=== PATIENT | female | born 1950 | race Caucasian/White ===

== ENCOUNTER → 2020-03-28 12:39 | Outpatient (CLI) | payer MEDICARE, SELFPAY ==
--- NOTE | ~2020-03-28 | DEXA_ITS ---
Bone Density Report Name: Sabina Sykes Age: 69 Sex: Female Ethnicity: White Date of : 1950 Indication: postmenopausal; screening for osteoporosis; parental hip fracture; Referring Provider: Fan Reese Study: Bone densitometry was performed. Exam Date: March 28, 2020 Accession number: [id number] Bone Density: Region BMD T-score Z-score Classification AP Spine (L1-L4) 1.003 -0.4 1.8 Normal World Health Organization criteria for BMD impression classify patients as: Normal (T-score at or above -1.0), Osteopenia (T-score between -1.0 and -2.5), or Osteoporosis (T-score at or below -2.5). Clinical Information Provided by Patient: Parent has had a hip fracture Has used the following medications: Vitamin D, Calcium, LEVOTHYROXIN Patient maximum height was 62.0 Menopause Age: 52 No regular weight bearing exercise Drinks caffeinated beverages Onset of menses at age 11 Number of children 2 Impression: The patient has normal bone mass. The patient has risk factors, including: parental hip fracture. Discussion: BONE DENSITY IS ABOVE THE MINIMUM DESIRABLE LEVEL AT ALL SKELETAL SITES TESTED. This patient?s bone mineral density is above the minimum desirable level (T-score -1.0 or better) at all sites measured. The patient should follow a healthful lifestyle (good nutrition with adequate calcium and vitamin D, and appropriate weight-bearing exercise). Follow-Up: Consider repeating this study in 5 years or sooner if there is some new clinical indication. Reported by: ERVIN on 03/28/2020 1:22:00 PM. Reviewed, dictated and finalized at location [facility]
== END ==
PROVIDERS: PCP Internal Medicine; Visit Provider Obstetrics & Gynecology
DX: M81.0 Age-related osteoporosis without current pathological fracture (principal)
CPT/HCPCS: 77080

== ENCOUNTER 2020-05-24 01:50 | Outpatient (CLI) | payer MEDICARE, SELFPAY ==
[2020-05-24 18:59] LABS: SARS-CoV-2 RNA PCR Negative
== END 2020-05-24 01:51 | disposition home or self-care (01) ==
LOC: ANHCOVIDDT 01:50
PROVIDERS: PCP Internal Medicine; Visit Provider Internal Medicine Gastroenterology
DX: Z01.812 Encounter for preprocedural laboratory examination (principal); Z20.828 Contact with and (suspected) exposure to other viral communicable diseases
CPT/HCPCS: 87635; C9803; U0003

== ENCOUNTER 2020-05-28 01:12 | Day surgery (SDC) | payer MEDICARE, SELFPAY ==
[2020-05-22 09:07] VITALS: BMI 29.7
[2020-05-28] MEDS: LACTATED RINGERS 1,000 ML 150 ML IV CONT (09:50)
[2020-05-28 09:52] VITALS: BP 130/82; PULSE 76; RESP 16; TEMP 36.4; O2SAT 96; BMI 30.2
--- NOTE | 2020-05-28 10:29 | WPDANESEPPF ---
Anes - Initial Pre Proc Eval Procedure: Operation Date: 05/28/20 11:00 Proposed Procedures p Screening Colonoscopy - Song Stanton MD Date/Time: 05/28/20 10:29 Surgeon: Song Stanton MD Pre Op Diagnosis: Neoplasm Screening Patient Data Age: 70 Gender: F Height: 5 ft 2 in Weight: 75 kg Last Vital Signs Temp 97.5 F L 05/28/20 09:52 Pulse 76 05/28/20 09:52 Resp 16 05/28/20 09:52 BP 130/82 05/28/20 09:52 Pulse Ox 96 05/28/20 09:52 Allergies Allergy/AdvReac Type Severity Reaction Status Date / Time morphine Allergy Mild Rash Verified 05/28/20 09:51 Home Medications Medication Instructions Recorded Confirmed Type alprazolam 0.5 mg PO HS PRN 05/22/20 05/22/20 History calcium carbonate-vitamin D3 2 tablet PO DAILY 05/22/20 05/22/20 History [Calcium 600 with Vitamin D3] citalopram 40 mg PO DAILY 05/22/20 05/22/20 History diclofenac sodium 75 mg PO BID 05/22/20 05/22/20 History hydrochlorothiazide 25 mg PO DAILY 05/22/20 05/22/20 History ketoconazole 1 applic TOPICAL DAILY 05/22/20 05/22/20 History lansoprazole 15 mg PO DAILY 05/22/20 05/22/20 History levothyroxine 112 mcg PO DAILY 05/22/20 05/22/20 History lisinopril 40 mg PO DAILY 05/22/20 05/22/20 History mecobalamin (vitamin B12) 500 mcg PO DAILY 05/22/20 05/22/20 History sodium,potassium,mag sulfates 17.5 See Rx Instructions PO .COMPLEX 05/22/20 Rx gram-3.13 gram-1.6 gram oral soln #354 ml Patient hx anesthesia problems: none Family hx anesthesia problems: none PMFSH Past Medical History Medical History (Updated 05/28/20 @ 10:29 by Wilmer Cristobal MD) Arthritis Hypertension Hypothyroid Social History Social History Smoking status: Never smoker Alcohol intake: never Substance use: never Substance use type: does not use Living arrangements: with family Spiritual care concerns: No Anes - Eval Final PreProcedure Day of Procedure 12/23/20 10:29 Patient weight: overweight Heart: regular rate and rhythm Lungs: clear to auscultation Airway: Mallampati scale class II Neurological: alert and oriented Last oral intake: >/= 8 hours ASA classification: III Emergent: no Anesthetic plan: proceed Anesthesia type and monitoring: general GIVS and standard monitoring Informed Consent: The patient's anesthetic plan and its attendant risks and benefits were discussed with the patient/family/POA. Questions were solicited and answers provided to the satisfaction of the patient/family/POA.
--- NOTE | 2020-05-28 11:00 | PM.HPGS ---
History of Present Illness History of Present Illness Consent: Risks, benefits, and alternatives have been discussed and questions answered. Patient agrees to proceed with procedure. Chief complaint: Neoplasm Screening Narrative: Sabina Sykes is a 70 year old female with colon polyps, last colonoscopy 5 years ago. Review of Systems Constitutional: Constitutional: Denies headache(s) and Denies weakness Eyes: Eyes: Denies blurry vision ENT: Reports Normal hearing present, Denies headache(s) and Denies neck pain Cardiovascular: Cardiovascular: Denies chest pain and Denies dyspnea Respiratory: Respiratory: Denies dyspnea Gastrointestinal: Gastrointestinal: Reports no additional gastrointestinal complaints Genitourinary: Genitourinary: Denies dysuria Musculoskeletal: Musculoskeletal: Denies neck pain Integumentary/Breasts: Skin/Breast: Denies dry skin Neurologic: Reports Normal hearing present, Denies headache(s) and Denies weakness Psychiatric: Psychiatric: Denies anxiety Endocrine: Endocrine: Denies change in body appearance Hematologic/Lymphatic: Hematologic/Lymphatic: Denies easy bleeding Allergic/Immunologic: Allergic/Immunologic: Denies urticaria PMFSH Past Medical History Medical History (Updated 05/28/20 @ 11:00 by Song Stanton MD) Adenomatous colon polyp Arthritis Hypertension Hypothyroid Social History Social History Smoking status: Never smoker Alcohol intake: never Substance use: never Substance use type: does not use Living arrangements: with family Spiritual care concerns: No Meds Home Medications and Allergies Home Medications Medication Instructions Recorded Confirmed Type alprazolam 0.5 mg PO HS PRN 05/22/20 05/22/20 History calcium carbonate-vitamin D3 2 tablet PO DAILY 05/22/20 05/22/20 History [Calcium 600 with Vitamin D3] citalopram 40 mg PO DAILY 05/22/20 05/22/20 History diclofenac sodium 75 mg PO BID 05/22/20 05/22/20 History hydrochlorothiazide 25 mg PO DAILY 05/22/20 05/22/20 History ketoconazole 1 applic TOPICAL DAILY 05/22/20 05/22/20 History lansoprazole 15 mg PO DAILY 05/22/20 05/22/20 History levothyroxine 112 mcg PO DAILY 05/22/20 05/22/20 History lisinopril 40 mg PO DAILY 05/22/20 05/22/20 History mecobalamin (vitamin B12) 500 mcg PO DAILY 05/22/20 05/22/20 History sodium,potassium,mag sulfates 17.5 See Rx Instructions PO .COMPLEX 05/22/20 Rx gram-3.13 gram-1.6 gram oral soln #354 ml Allergies Allergy/AdvReac Type Severity Reaction Status Date / Time morphine Allergy Mild Rash Verified 05/28/20 09:51 Vital Signs Vital Signs - 24 hr 05/28/20 09:52 Temperature 97.5 F L Pulse Rate 76 Respiratory Rate 16 Blood Pressure 130/82 Pulse Oximetry 96 Exam Const: General: comfortable and no acute distress HENMT: General nose exam: Normal nares present Eyes: General: appearance normal, both eyes and all related structures Neck: Neck: no JVD Resp: Auscultation: clear to auscultation bilaterally Cardio: Rate: regular rate Rhythm: regular rhythm GI: Inspection: non-distended GI Palp: Yes Soft to palpation Skin: General skin exam: normal color Neuro: General: gait normal Speech: normal speech Extrem: General: normal to inspection Psych: Mental Status: mental status grossly normal Assessment and Plan Assessment and plan (1) Adenomatous colon polyp: Code(s): D12.6 - Benign neoplasm of colon, unspecified Status: Acute Assessment and Plan: will proceed with colonoscopy
[2020-05-28 11:25] VITALS: BP 121/72; PULSE 67; RESP 16; O2SAT 100
[2020-05-28 11:35] VITALS: BP 133/85; PULSE 65; RESP 17; O2SAT 96
[2020-05-28 11:45] VITALS: BP 152/68; PULSE 69; RESP 21; O2SAT 97
== END 2020-05-28 11:56 | disposition home or self-care (01) ==
PROVIDERS: PCP Internal Medicine; Visit Provider Internal Medicine Gastroenterology
PROC: 0DJD8ZZ Inspection of Lower Intestinal Tract, Via Natural or Artificial Opening Endoscopic (ICD-10-PCS; CPT 45378; principal; 2020-05-28 11:00)
DX: Z12.11 Encounter for screening for malignant neoplasm of colon (principal); K63.5 Polyp of colon; I10 Essential (primary) hypertension; E03.9 Hypothyroidism, unspecified; M19.90 Unspecified osteoarthritis, unspecified site
CPT/HCPCS: 45380; 88305; J2001; J2704; J7120

== ENCOUNTER 2020-12-22 10:04 | Outpatient (CLI) | payer MEDICARE, SELFPAY ==
--- NOTE | ~2020-12-22 | XR_ITS ---
XR sacrum coccyx min 2V DATE: 12/22/2020 10:31 INDICATION: Fitting and adjustment of neural pacemaker TECHNIQUE: 3 views including AP and lateral COMPARISON: 07/05/2013 FINDINGS: Right-sided battery pack is noted with lead extending through left S3 neural foramen flask carrier oanteriorly. Status post bilateral total hip arthroplasty. 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 IMPRESSION: Right-sided neurotransmitter with lead extending through left S3 ne ural foramen
== END 2020-12-22 10:05 | disposition home or self-care (01) ==
PROVIDERS: PCP Internal Medicine; Visit Provider Nurse Practitioner Adult Health
DX: Z46.2 Encounter for fitting and adjustment of other devices related to nervous system and special senses (principal)
CPT/HCPCS: 72220